=== PATIENT | male | born 1940 | race Caucasian/White ===

== ENCOUNTER → 2018-07-30 09:08 | Outpatient (CLI) | payer BC, SELFPAY ==
[2018-07-30 10:15] LABS: Cholesterol 213 mg/dL (140-199); Glucose 110 mg/dL (80-110); HDL Cholesterol 57 mg/dL (40-60); LDL Cholesterol Calculated 131 mg/dL (<100); Triglycerides 123 mg/dL (35-150)
== END ==
PROVIDERS: PCP Family Medicine; Visit Provider Physician Assistant
DX: E78.00 Pure hypercholesterolemia, unspecified (principal); Z13.1 Encounter for screening for diabetes mellitus; Z13.220 Encounter for screening for lipoid disorders
CPT/HCPCS: 36415; 80061; 82947

== ENCOUNTER → 2019-11-15 08:40 | Outpatient (CLI) | payer BC, SELFPAY ==
[2019-11-15 10:08] LABS: Add Manual Diff / Slide Review NO; Basophils Absolute Auto 0 /uL (0-100); Basophils Percent Auto 0.4 % (0-2); Eosinophils Absolute Auto 100 /uL (0-450); Eosinophils Percent Auto 1.2 % (2-4); Hemoglobin 15.4 g/dL (13.5-17.5); Lymphocytes Absolute Auto 2100 /uL (1100-4500); Lymphocytes Percent Auto 28.7 % (25-40); Mean Corpuscular HGB Conc 34.3 % (30-36); Mean Corpuscular Volume 96.5 fL (80-100); Monocytes Absolute Auto 600 /uL (0-900); Monocytes Percent Auto 8.2 % (3-14); Neutrophils Absolute Auto 4400 /uL (1500-7000); Neutrophils Percent Auto 61.5 % (50-75); Platelet Count 148 X10^3/uL (150-400); Red Blood Cell Count 4.66 X10^6/uL (4.5-5.9); Red Cell Distribution Width 13.3 % (11.6-14.8); White Blood Cell Count 7.2 X10^3/uL (4.5-11.0)
[2019-11-15 10:36] LABS: BUN Creatinine Ratio 26.6 (6-22); Blood Urea Nitrogen 25 mg/dL (9-20); Calcium 9.3 mg/dL (8.4-10.2); Carbon Dioxide 26 mmol/L (22-32); Chloride 107 mmol/L (98-107); Cholesterol 200 mg/dL (140-199); Estimated Glomerular Filt Rate > 60.0 mL/min (>60); Glucose 109 mg/dL (80-110); HDL Cholesterol 45 mg/dL (40-60); HEMOLYSIS 17 (0-50); LDL Cholesterol Calculated 119 mg/dL (<100); Potassium 4.1 mmol/L (3.4-5.1); Sodium 140 mmol/L (137-145); Triglycerides 178 mg/dL (35-150)
[2019-11-15 10:53] LABS: Vitamin D 25 Hydroxy (D3) 26.5 ng/mL (30.0-100.0)
[2019-11-15 11:07] LABS: Prostate Specific Antigen Scrn 2.17 ng/mL (0.1-4.0)
== END ==
PROVIDERS: PCP Family Medicine; Referring Provider Family Medicine; Visit Provider Family Medicine
DX: Z00.00 Encounter for general adult medical examination without abnormal findings (principal); Z12.5 Encounter for screening for malignant neoplasm of prostate; Z76.89 Persons encountering health services in other specified circumstances; E55.9 Vitamin D deficiency, unspecified; E78.5 Hyperlipidemia, unspecified
CPT/HCPCS: 36415; 80048; 80061; 82306; 85025; G0103

== ENCOUNTER → 2020-02-09 10:23 | Outpatient (CLI) | payer BC, SELFPAY ==
[2020-02-10 11:58] LABS: Vitamin D 25 Hydroxy (D3) 33.6 ng/mL (30.0-100.0)
== END ==
PROVIDERS: PCP Family Medicine; Referring Provider Family Medicine; Visit Provider Family Medicine
DX: E55.9 Vitamin D deficiency, unspecified (principal)
CPT/HCPCS: 36415; 82306

== ENCOUNTER → 2020-09-18 09:52 | Outpatient (CLI) | payer BC, SELFPAY ==
[2020-09-18 10:43] LABS: Basophils Absolute Auto 0 /uL (0-100); Basophils Percent Auto 0.4 % (0-2); Eosinophils Absolute Auto 0 /uL (0-450); Eosinophils Percent Auto 0.5 % (2-4); Hemoglobin 15.2 g/dL (13.5-17.5); Lymphocytes Absolute Auto 2000 /uL (1100-4500); Lymphocytes Percent Auto 24.5 % (25-40); Mean Corpuscular HGB Conc 33.1 % (30-36); Mean Corpuscular Hemoglobin 32.2 PG (26-34); Mean Corpuscular Volume 97.3 fL (80-100); Monocytes Absolute Auto 600 /uL (0-900); Monocytes Percent Auto 7.6 % (3-14); Neutrophils Absolute Auto 5400 /uL (1500-7000); Red Blood Cell Count 4.73 X10^6/uL (4.5-5.9); Red Cell Distribution Width 13.6 % (11.6-14.8); White Blood Cell Count 8.1 X10^3/uL (4.5-11.0)
[2020-09-18 10:52] LABS: Alanine Aminotransferase 16 IU/L (<50); Albumin 4.4 g/dL (3.5-5.0); Albumin Globulin Ratio 1.3 (1.0-2.8); Alkaline Phosphatase 71 U/L (38-126); Aspartate Aminotransferase 30 IU/L (17-59); BUN Creatinine Ratio 26.4 (6-22); Bilirubin Total 0.8 mg/dL (0.2-1.3); Blood Urea Nitrogen 24 mg/dL (9-20); Calcium 9.2 mg/dL (8.4-10.2); Carbon Dioxide 29 mmol/L (22-32); Chloride 106 mmol/L (98-107); Cholesterol 214 mg/dL (140-199); Estimated Glomerular Filt Rate > 60.0 mL/min (>60); Globulin 3.5 g/dL (1.7-4.1); Glucose 116 mg/dL (80-110); HDL Cholesterol 59 mg/dL (40-60); HEMOLYSIS < 15 (0-50); LDL Cholesterol Calculated 131 mg/dL (<100); Potassium 4.1 mmol/L (3.4-5.1); Sodium 140 mmol/L (137-145); Total Protein 7.9 g/dL (6.3-8.2); Triglycerides 118 mg/dL (35-150)
[2020-09-18 10:57] LABS: Vitamin D 25 Hydroxy (D3) 42.2 ng/mL (30.0-100.0)
[2020-09-18 11:14] LABS: Prostate Specific Antigen 2.51 ng/mL (0.10-4.00)
[2020-09-18 11:16] LABS: Add Manual Diff / Slide Review SLIDE REVIEW
[2020-09-18 11:23] LABS: Platelet Estimate Decreased on smear; RBC Morphology Normal Morphology
== END ==
PROVIDERS: PCP Family Medicine; Referring Provider Family Medicine; Visit Provider Family Medicine
DX: E55.9 Vitamin D deficiency, unspecified (principal); E78.5 Hyperlipidemia, unspecified; Z12.5 Encounter for screening for malignant neoplasm of prostate
CPT/HCPCS: 80053; 80061; 82306; 84153; 85025

== ENCOUNTER → 2021-12-06 09:06 | Outpatient (CLI) | payer BC, SELFPAY ==
[2021-12-06 10:24] LABS: Add Manual Diff / Slide Review NO; Basophils Absolute Auto 0 /uL (0-100); Basophils Percent Auto 0.3 % (0-2); Eosinophils Absolute Auto 100 /uL (0-450); Eosinophils Percent Auto 0.9 % (2-4); Hematocrit 45.1 % (41-53); Hemoglobin 15.3 g/dL (13.5-17.5); Lymphocytes Absolute Auto 2000 /uL (1100-4500); Lymphocytes Percent Auto 28.1 % (25-40); Mean Corpuscular HGB Conc 33.9 % (30-36); Mean Corpuscular Hemoglobin 32.3 PG (26-34); Mean Corpuscular Volume 95.5 fL (80-100); Monocytes Absolute Auto 500 /uL (0-900); Monocytes Percent Auto 7.5 % (3-14); Neutrophils Absolute Auto 4400 /uL (1500-7000); Neutrophils Percent Auto 63.2 % (50-75); Red Blood Cell Count 4.72 X10^6/uL (4.5-5.9); Red Cell Distribution Width 13.7 % (11.6-14.8)
[2021-12-06 10:41] LABS: Hemoglobin A1C% w Est Avg Glu 5.6 % (4.0-6.0)
[2021-12-06 10:44] LABS: Platelet Count 136 X10^3/uL (150-400)
[2021-12-06 10:51] LABS: Alanine Aminotransferase 17 IU/L (<50); Albumin 4.6 g/dL (3.5-5.0); Albumin Globulin Ratio 1.5 (1.0-2.8); Alkaline Phosphatase 66 U/L (38-126); Aspartate Aminotransferase 29 IU/L (17-59); BUN Creatinine Ratio 23.7 (6-22); Bilirubin Total 0.8 mg/dL (0.2-1.3); Blood Urea Nitrogen 23 mg/dL (9-20); Calcium 9.2 mg/dL (8.4-10.2); Carbon Dioxide 29 mmol/L (22-32); Chloride 107 mmol/L (98-107); Cholesterol 198 mg/dL (140-199); Estimated Glomerular Filt Rate > 60 mL/min (>60); Globulin 3.1 g/dL (1.7-4.1); Glucose 113 mg/dL (80-110); HDL Cholesterol 64 mg/dL (40-60); HEMOLYSIS < 15 (0-50); LDL Cholesterol Calculated 117 mg/dL (<100); Potassium 4.3 mmol/L (3.4-5.1); Sodium 141 mmol/L (137-145); Total Protein 7.7 g/dL (6.3-8.2); Triglycerides 84 mg/dL (35-150)
[2021-12-06 11:10] LABS: Vitamin D 25 Hydroxy (D3) 46.5 ng/mL (30.0-100.0)
[2021-12-06 11:19] LABS: Prostate Specific Antigen Scrn 2.32 ng/mL (0.1-4.0)
== END ==
PROVIDERS: PCP Family Medicine; Referring Provider Family Medicine; Visit Provider Family Medicine
DX: E55.9 Vitamin D deficiency, unspecified (principal); E78.5 Hyperlipidemia, unspecified; R73.01 Impaired fasting glucose; Z12.5 Encounter for screening for malignant neoplasm of prostate
CPT/HCPCS: 36415; 80053; 80061; 82306; 83036; 85025; G0103

== ENCOUNTER → 2022-02-18 10:27 | Outpatient (CLI) | payer BC, SELFPAY ==
[2022-02-18 16:39] LABS: COVID19 -Nasal RAPID Negative (Negative)
== END ==
PROVIDERS: PCP Family Medicine; Visit Provider Surgery
DX: Z01.812 Encounter for preprocedural laboratory examination (principal); Z20.822 Contact with and (suspected) exposure to COVID-19
CPT/HCPCS: 87635; C9803

== ENCOUNTER 2022-02-19 14:23 | Day surgery (SDC) | payer BC, SELFPAY ==
[2022-02-19] MEDS: LACTATED RINGERS 1,000 ML 200 ML IV (14:50)
[2022-02-19 14:55] VITALS: BP 129/77; PULSE 58; RESP 16; TEMP 35.7; O2SAT 97; BMI 24.4
--- NOTE | 2022-02-19 15:20 | PM.HP.1 ---
History of Present Illness History of Present Illness Date Patient Seen: 02/19/22 Time Patient Seen: 15:20 Chief complaint: Colonoscopy Narrative: The patient presents for colorectal screening. Had a normal colonoscopy 5 years ago however prior to this he had multiple polyps. No personal or family history of colon cancer. On further history denies any recent gastrointestinal symptoms. No nausea, vomiting, abdominal pain, loss of appetite, unexplained weight loss, change in bowel habits, diarrhea, constipation, melena, hematochezia, or bright red blood per rectum. Patient History Medical History Chronic left hip pain Elevated fasting blood sugar Hx of colonic polyps Hyperlipidemia Screening for prostate cancer Stiffness of finger joint of right hand Vitamin D deficiency Surgical History Status post knee surgery Family & Social History Family History Father Heart disease Diabetes mellitus Social History: household members spouse Tobacco & Substance use: Smoking Status Never smoker alcohol intake former Substance Use Type does not use Meds Home Medications and Allergies Home Medications Medication Instructions Recorded Confirmed Type ibuprofen 200 mg tablet 200 mg PO PRN PRN Pain (Scale 09/30/17 02/19/22 History Score 1-3) ##0 Allergies Allergy/AdvReac Type Severity Reaction Status Date / Time No Known Drug Allergies Allergy Verified 02/19/22 14:50 Exam Vital Signs (past 8 hours): - 02/19/22 14:55 Temperature 96.2 F L Pulse Rate 58 L Respiratory Rate 16 Blood Pressure 129/77 Pulse Oximetry 97 Oxygen Delivery Method Room Air Oxygen Delivery Method Room Air Narrative Exam Narrative: General adult male alert oriented no acute distress Abdomen soft nontender nondistended Assessment & Plan Assessment & Plan narrative: The patient requires colorectal screening and colonoscopy is recommended. Technical details were discussed. Risks, benefits, alternatives explained. Risks including but not limited to myocardial infarction, aspiration, bleeding, pain, missed lesion, incomplete examination, need for further radiographic studies, colonic perforation, and need for major abdominal surgery were discussed. All questions were answered to their satisfaction, and they are in agreement with this plan. Time Spent With Patient Critical Care time: I spent a total of [] minutes of critical care time on this patient's care today; this time is exclusive of procedural time.
--- NOTE | 2022-02-19 15:21 | PM.OP.COLON ---
Operative Date/Time/Diagnoses Date of procedure: 02/19/22 Time of procedure: 15:21 Pre-op diagnosis: Screening colonoscopy Post-op diagnosis: same Procedure & Clinicians Study performed: Colonoscopy Same procedure as scheduled: Yes Indications: Screening Surgeon: James Jiang Procedure Notes Procedure in detail: Medications: Conscious sedation using 3mg IV midazolam and 100mcg IV of fentanyl The history and physical was performed/updated and the patient is ASA class is 2. The procedure was discussed in detail with the patient. Potential risks complications including infection, bleeding, missed diagnosis, perforation, need for surgery, and were explained. Their questions were answered and informed consent was obtained. Patient was brought to the procedure room and placed standard monitoring equipment. The patient's vital signs were monitored continuously throughout the entire procedure. Prior to starting time-out was performed. The patient was placed in the left lateral recumbent position. Procedural sedation was administered. Examination began with a thorough inspection of the perianal area there was no evidence of fissures, fistulae, external hemorrhoids or cutaneous malignancy. The colonoscopy scope was then placed into the anal canal and was advanced to the cecum, which was identified by the ileocecal valve, the appendiceal orifice and the confluence of the taenia. The scope was then slowly withdrawn examining colon thoroughly in all directions, irrigating it of any residual stool. FINDINGS 1. No masses or polyps 2. Sigmoid diverticulosis-mild The patient tolerated the procedure well. They will be discharged once criteria are met. The prep was of good/excellent quality. The withdrawl time was 7minutes. The sedation time was 20 minutes. Specimen(s): none sent Complications: none Impression: Normal colonoscopy Post-procedure Plan for aftercare: No further colonoscopy is necessary Disposition: same day surgery
[2022-02-19] MEDS: MIDAZOLAM 5 MG/5 ML VIAL 3 MG IV (15:44)
[2022-02-19] MEDS: fentaNYL 100 MCG/2 ML INJ IV (15:44)
[2022-02-19 15:48] VITALS: BP 100/63; PULSE 47; RESP 14; TEMP 36.3; O2SAT 93
[2022-02-19 15:53] VITALS: BP 111/71; PULSE 53; RESP 14; O2SAT 96
[2022-02-19 15:58] VITALS: BP 116/70; PULSE 50; RESP 16; O2SAT 97
== END 2022-02-19 16:15 | disposition home or self-care (01) ==
PROVIDERS: PCP Family Medicine; Referring Provider Surgery; Visit Provider Surgery
PROC: 0DJD8ZZ Inspection of Lower Intestinal Tract, Via Natural or Artificial Opening Endoscopic (ICD-10-PCS; CPT 45378; principal; 2022-02-19 15:45)
DX: Z12.11 Encounter for screening for malignant neoplasm of colon (principal); K57.30 Diverticulosis of large intestine without perforation or abscess without bleeding
CPT/HCPCS: 45378; 99152; J2250; J3010

== ENCOUNTER → 2022-12-19 09:11 | Outpatient (CLI) | payer BC, SELFPAY ==
[2022-12-19 10:26] LABS: Basophils Absolute Auto 0 /uL (0-100); Basophils Percent Auto 0.4 % (0-2); Eosinophils Absolute Auto 100 /uL (0-450); Eosinophils Percent Auto 0.7 % (2-4); Hematocrit 45.8 % (41-53); Hemoglobin 15.5 g/dL (13.5-17.5); Lymphocytes Absolute Auto 2100 /uL (1100-4500); Lymphocytes Percent Auto 22.5 % (25-40); Mean Corpuscular HGB Conc 33.9 % (30-36); Mean Corpuscular Hemoglobin 32.2 PG (26-34); Monocytes Absolute Auto 700 /uL (0-900); Monocytes Percent Auto 7.5 % (3-14); Neutrophils Absolute Auto 6500 /uL (1500-7000); Neutrophils Percent Auto 68.9 % (50-75); Red Blood Cell Count 4.82 X10^6/uL (4.5-5.9); Red Cell Distribution Width 14.2 % (11.6-14.8); White Blood Cell Count 9.4 X10^3/uL (4.5-11.0)
[2022-12-19 10:30] LABS: Add Manual Diff / Slide Review SLIDE REVIEW
[2022-12-19 10:39] LABS: Alanine Aminotransferase 23 IU/L (<50); Albumin 4.4 g/dL (3.5-5.0); Albumin Globulin Ratio 1.2 (1.0-2.8); Alkaline Phosphatase 70 U/L (38-126); Aspartate Aminotransferase 29 IU/L (17-59); BUN Creatinine Ratio 26.8 (6-22); Bilirubin Total 1.2 mg/dL (0.2-1.3); Blood Urea Nitrogen 26 mg/dL (9-20); Calcium 9.2 mg/dL (8.4-10.2); Carbon Dioxide 29 mmol/L (22-32); Chloride 105 mmol/L (98-107); Cholesterol 231 mg/dL (140-199); Estimated Glomerular Filt Rate > 60 mL/min (>60); Globulin 3.6 g/dL (1.7-4.1); Glucose 125 mg/dL (80-110); HDL Cholesterol 58 mg/dL (40-60); HEMOLYSIS < 15 (0-50); LDL Cholesterol Calculated 149 mg/dL (<100); Potassium 4.5 mmol/L (3.4-5.1); Sodium 141 mmol/L (137-145); Triglycerides 121 mg/dL (35-150)
[2022-12-19 12:25] LABS: RBC Morphology Normal Morphology
[2022-12-19 12:26] LABS: Platelet Estimate Adequate on smear
== END ==
PROVIDERS: PCP Family Medicine; Referring Provider Family Medicine; Visit Provider Family Medicine
DX: R73.01 Impaired fasting glucose (principal); E55.9 Vitamin D deficiency, unspecified; E78.2 Mixed hyperlipidemia; Z00.00 Encounter for general adult medical examination without abnormal findings
CPT/HCPCS: 36415; 80053; 80061; 82306; 85025

== ENCOUNTER → 2022-12-27 09:46 | Outpatient (CLI) | payer BC, SELFPAY ==
[2022-12-28 08:47] LABS: Labcorp Hemoglobin (Hb) A1c 5.8 % (4.8-5.6)
== END ==
PROVIDERS: PCP Family Medicine; Referring Provider Family Medicine; Visit Provider Family Medicine
DX: R73.01 Impaired fasting glucose (principal)
CPT/HCPCS: 36415; 83036

== ENCOUNTER → 2023-03-12 10:24 | Outpatient (CLI) | payer BC, SELFPAY ==
[2023-03-12 13:17] LABS: Prostate Specific Antigen Scrn 2.88 ng/mL (0.1-4.0)
== END ==
PROVIDERS: PCP Family Medicine; Referring Provider Physician Assistant; Visit Provider Physician Assistant
DX: Z12.5 Encounter for screening for malignant neoplasm of prostate (principal)
CPT/HCPCS: 36415; G0103

== ENCOUNTER → 2023-04-09 09:50 | Outpatient (CLI) | payer BC, SELFPAY ==
[2023-04-09 11:29] LABS: Hemoglobin A1C% w Est Avg Glu 5.8 % (4.0-6.0)
[2023-04-09 11:45] LABS: Cholesterol 209 mg/dL (140-199); HDL Cholesterol 60 mg/dL (40-60); LDL Cholesterol Calculated 133 mg/dL (<100); Triglycerides 78 mg/dL (35-150)
== END ==
PROVIDERS: PCP Family Medicine; Referring Provider Family Medicine; Visit Provider Family Medicine
DX: E78.5 Hyperlipidemia, unspecified (principal); R73.01 Impaired fasting glucose
CPT/HCPCS: 36415; 80061; 83036

== ENCOUNTER → 2023-04-16 12:07 | Outpatient (CLI) | payer BC, SELFPAY ==
[2023-04-16 13:48] LABS: Appearance Urine UA CLEAR; Bilirubin Urine UA NEGATIVE (NEGATIVE); Color Urine UA YELLOW; Glucose Urine UA NEGATIVE (Negative); Ketones Urine UA NEGATIVE (NEGATIVE); Leukocyte Esterase Urine UA NEGATIVE (NEGATIVE); Nitrite Urine UA NEGATIVE (Negative); Occult Blood Urine UA NEGATIVE (Negative); Protein Urine UA NEGATIVE (Negative); Specific Gravity Urine UA 1.025 (1.000-1.035); Urobilinogen Urine UA 0.2 E.U./dL (0.2)
[2023-04-16 14:05] LABS: Bacteria Urine None Seen; Culture Indicated Urine Cult Not Indicated; RBC Urine 0-1/HPF (0-5/HPF); Squamous Epithelial Cell Urine 0-1 /HPF (0-5/HPF); WBC Urine None Seen (0-5/HPF)
== END ==
PROVIDERS: PCP Family Medicine; Visit Provider Family Medicine
DX: R30.9 Painful micturition, unspecified (principal)
CPT/HCPCS: 81001

== ENCOUNTER → 2023-05-23 09:11 | Outpatient (CLI) | payer BC, SELFPAY ==
--- NOTE | 2023-05-23 09:12 | DI.CT.S_ITS ---
PROCEDURE: CT KIDNEY URETER BLADDER (KUB) INDICATIONS: Hematuria TECHNIQUE: Axial sections were acquired from the lung bases to the pubic symphysis. Coronal and sagittal reformats were performed. For radiation dose reduction, the following was used: automated exposure control, adjustment of mA and/or kV according to patient size. COMPARISON: None. FINDINGS: Image quality: Excellent. Lung bases: Unremarkable. Heart: Moderate coronary artery calcification. URINARY: Kidneys and ureters: A few punctate nonobstructing lower pole right intrarenal calcifications are present. No right hydronephrosis, hydroureter, or perinephric inflammation. 2 left-sided nonobstructing mid and lower pole intrarenal calculi. The largest measures 3 mm. There are a few parapelvic cysts. No hydronephrosis or hydroureter. No ureterolithiasis. Bladder: The urinary bladder is decompressed. There is mild uniform wall thickening. There are 3 intraluminal calculi in the urinary bladder layering posteriorly and along the superior wall. The largest measures 5 mm. ABDOMEN: Liver: No contour-deforming solid mass. Gallbladder: No radiopaque gallstones or wall thickening. Biliary ducts: No biliary dilation. Pancreas: A few punctate glandular calcifications are present. No ductal dilatation. Spleen: Normal size spleen. Scattered coarse calcified granulomas. Adrenal Glands: No adrenal nodules. Stomach and Bowel: Stomach and small bowel loops are normal caliber. Sigmoid colon demonstrates segmental extensive diverticulosis. No acute pericolonic inflammation. The appendix is absent. Occasional colonic diverticula elsewhere. Peritoneum: No abnormal intraperitoneal fluid. No free air. Ventral Wall: No hernia. Abdominal Nodes: No enlarged retroperitoneal or mesenteric lymph nodes. Vessels: Aorta and inferior vena cava are normal in size. PELVIS: Pelvic Organs: The prostate gland is moderately enlarged and contains coarse calcifications. Pelvic Nodes: No adenopathy. Miscellaneous: Bilateral small fat containing indirect inguinal hernias. Bones: No suspicious bone lesions. 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 IMPRESSION: 1. 3 bladder calculi. Presence may cause micro hematuria. 2. Bilateral retained intrarenal calculi measuring up to 3 mm in size. 3. Extensive colonic, particularly sigmoid diverticulosis. 4. Scattered pancreatic calcifications suggesting chronic pancreatitis. Dictated by: Vivi Lujan M.D. on 05/23/2023 at 12:41 Approved by: iVvi Lujan M.D. on 05/23/2023 at 13:14
== END ==
PROVIDERS: PCP Family Medicine; Referring Provider Family Medicine; Visit Provider Family Medicine
DX: N21.0 Calculus in bladder (principal); R31.9 Hematuria, unspecified; N20.0 Calculus of kidney; K57.30 Diverticulosis of large intestine without perforation or abscess without bleeding; K86.89 Other specified diseases of pancreas; I25.10 Atherosclerotic heart disease of native coronary artery without angina pectoris
CPT/HCPCS: 74176

== ENCOUNTER → 2023-07-02 12:15 | Outpatient (CLI) | payer BC, SELFPAY ==
--- NOTE | 2023-07-02 12:17 | DI.RAD.S_ITS ---
PROCEDURE: XR KUB INDICATIONS: Evaluate kidney stone/bladder stone TECHNIQUE: One view of the abdomen acquired. COMPARISON: [facility], CT, CT KIDNEY URETER BLADDER (KUB), 05/23/2023, 9:32. FINDINGS: Surgical changes and devices: None. Bowel: Bowel gas pattern is normal. Soft tissues: 2 mm calculus projecting over the left psoas muscle at the level of L3-L4. Visualized solid organ contours appear normal in size. Bones: Severe DJD of the left hip. IMPRESSION: 2 mm round calculus projecting over the left psoas muscle at the level of L3-L4 could represent phleboliths, atherosclerotic calcification or ureteral calculus. Dictated by: Esvin Ferreira M.D. on 07/02/2023 at 18:01 Approved by: Esvin Ferreira M.D. on 07/02/2023 at 18:06
== END ==
PROVIDERS: PCP Family Medicine; Referring Provider Urology; Visit Provider Urology
DX: N20.0 Calculus of kidney (principal); N21.0 Calculus in bladder; Z87.442 Personal history of urinary calculi
CPT/HCPCS: 74018

== ENCOUNTER 2023-07-08 16:03 | Emergency (ER) | payer BC, SELFPAY ==
[2023-07-08 16:15] VITALS: BP 123/82; PULSE 82; RESP 17; TEMP 36.6; O2SAT 95; BMI 24.7
--- NOTE | 2023-07-08 16:37 | DI.CT.S_ITS ---
PROCEDURE: CT KIDNEY URETER BLADDER (KUB) INDICATIONS: right sided flank pain TECHNIQUE: Axial sections were acquired from the lung bases to the pubic symphysis. Coronal and sagittal reformats were performed. For radiation dose reduction, the following was used: automated exposure control, adjustment of mA and/or kV according to patient size. COMPARISON: [facility], CT, CT KIDNEY URETER BLADDER (KUB), 05/23/2023, 9:32. FINDINGS: Image quality: Diagnostic. Lower Chest: Calcification of the coronary vasculature. URINARY: Right Kidney: Nonobstructing 2 mm calculus within the inferior pole right kidney. Mild right hydronephrosis. Right Ureter: No hydroureter. Left Kidney: 4 mm calculus in the inferior pole left kidney. 3 mm left ureteropelvic junction calculus. Mild left hydronephrosis. Left Ureter: No hydroureter. Bladder: Normal wall thickness several small calculi within the urinary bladder are present, largest of which is in the right posterior urinary bladder measuring roughly 4 mm. ABDOMEN: Liver: No contour-deforming solid mass. Gallbladder: No radiopaque gallstones or wall thickening. Biliary ducts: No biliary dilation. Pancreas: No ductal dilation. Spleen: Size is within normal limits. Adrenal Glands: No adrenal nodules. Stomach and Bowel: Normal colonic caliber, without significant wall thickening. Peritoneum: No abnormal intraperitoneal fluid. No free air. Ventral Wall: No hernia. Abdominal Nodes: No enlarged retroperitoneal or mesenteric lymph nodes. Vessels: Aorta and inferior vena cava are normal in size. PELVIS: Pelvic Organs: Unremarkable. Pelvic Nodes: Unremarkable. Miscellaneous: Fat containing bilateral inguinal hernias are present.. Bones: Unremarkable. IMPRESSION: 1. Left ureteropelvic junction calculus associated with mild left hydronephrosis. 2. Nonobstructing bilateral renal calculi. 3. Coronary artery disease. 4. Urinary bladder calculi. Dictated by: Geoffrey Bajwa M.D. on 07/08/2023 at 16:53 Approved by: Geoffrey Bajwa M.D. on 07/08/2023 at 16:56
[2023-07-08 16:54] LABS: Add Manual Diff / Slide Review NO; Basophils Absolute Auto 100 /uL (0-100); Basophils Percent Auto 0.5 % (0-2); Eosinophils Absolute Auto 0 /uL (0-450); Eosinophils Percent Auto 0.1 % (2-4); Hematocrit 45.8 % (41-53); Hemoglobin 15.4 g/dL (13.5-17.5); Lymphocytes Absolute Auto 1200 /uL (1100-4500); Mean Corpuscular HGB Conc 33.6 % (30-36); Mean Corpuscular Hemoglobin 31.8 PG (26-34); Mean Corpuscular Volume 94.8 fL (80-100); Monocytes Absolute Auto 600 /uL (0-900); Monocytes Percent Auto 5.7 % (3-14); Neutrophils Absolute Auto 9300 /uL (1500-7000); Neutrophils Percent Auto 82.7 % (50-75); Platelet Count 151 X10^3/uL (150-400); Red Blood Cell Count 4.83 X10^6/uL (4.5-5.9); Red Cell Distribution Width 13.6 % (11.6-14.8); White Blood Cell Count 11.3 X10^3/uL (4.5-11.0)
[2023-07-08 16:59] LABS: Prothrombin Time 11.9 SECONDS (9.4-12.5)
[2023-07-08 17:03] LABS: Alanine Aminotransferase 17 IU/L (<50); Albumin 4.6 g/dL (3.5-5.0); Albumin Globulin Ratio 1.2 (1.0-2.8); Alkaline Phosphatase 62 U/L (38-126); Aspartate Aminotransferase 26 IU/L (17-59); BUN Creatinine Ratio 34.8 (6-22); Blood Urea Nitrogen 32 mg/dL (9-20); Calcium 9.4 mg/dL (8.4-10.2); Carbon Dioxide 27 mmol/L (22-32); Chloride 103 mmol/L (98-107); Estimated Glomerular Filt Rate > 60 mL/min (>60); Globulin 3.8 g/dL (1.7-4.1); Glucose 123 mg/dL (80-110); HEMOLYSIS < 15 (0-50); Lipase 42 U/L (23-300); Potassium 4.2 mmol/L (3.4-5.1); Sodium 138 mmol/L (137-145); Total Protein 8.4 g/dL (6.3-8.2)
[2023-07-08 17:42] LABS: Bacteria Urine None Seen; Culture Indicated Urine Cult Not Indicated; RBC Urine 5-10/HPF (0-5/HPF); Squamous Epithelial Cell Urine 0-1 /HPF (0-5/HPF); Urine Volume 10mL (spun); WBC Urine None Seen (0-5/HPF)
--- NOTE | 2023-07-08 17:42 | PC.NURSE ---
Wound cleaned and dressed. Pt educated to keep wound dry and clean once a day with soap and water. It was stressed the importance of antibiotics
[2023-07-08 18:02] VITALS: BP 128/84; PULSE 76; RESP 18; O2SAT 95
--- NOTE | 2023-07-08 18:10 | ED_ITS ---
HPI - Back Pain/Injury <Argenis Miguel PA-C - Last Filed: 07/08/23 18:16> General Chief Complaint: Back Pain/Injury Stated Complaint: back pain Time Seen by Provider: 07/08/23 17:27 History of Present Illness HPI Narrative: 83-year-old male with past medical history nephrolithiasis, inguinal hernia, hyperlipidemia presents to the ED with 1 day of right-sided flank pain. Patient states that he has a history of nephrolithiasis, is a patient of Dr. Arthur. Patient states that he had multiple episodes of intermittent right-sided flank pain earlier today. Patient states that his pain has subsided since he came into the ED. patient denies fever, chills, nausea, vomiting. Patient talked to Dr. Arthur who sent him to the ED for further evaluation. Related Data Previous Rx's Medication Instructions Recorded tamsulosin 0.4 mg capsule 0.4 mg PO BEDTIME 30 days #30 caps 07/08/23 Allergies Allergy/AdvReac Type Severity Reaction Status Date / Time No Known Drug Allergies Allergy Verified 07/08/23 16:19 Review of Systems <Argenis Miguel PA-C - Last Filed: 07/08/23 18:16> Constitutional Constitutional: Denies chills, Denies fatigue, Denies fever(s), Denies frequent falls, Denies lethargy and Denies weakness Eyes Eyes: Denies change in vision, Denies eye discharge, Denies irritation and Denies loss of vision ENT Ears, Nose, Mouth, and Throat: Denies change in voice, Denies dizziness, Denies neck pain, Denies sore throat and Denies throat swelling Cardiovascular Cardiovascular: Denies chest pain, Denies irregular heart rhythm, Denies lightheadedness, Denies palpitations, Denies dyspnea, Denies dyspnea on exertion and Denies orthopnea Respiratory Respiratory: Denies cough, Denies dyspnea, Denies dyspnea on exertion and Denies wheezing Gastrointestinal Gastrointestinal: Denies abdominal pain, Denies change in bowel habits, Denies diarrhea, Denies nausea and Denies vomiting Genitourinary Comments: Right-sided flank pain Musculoskeletal Musculoskeletal: Denies neck pain and Denies numbness Integumentary/Breasts Skin/Breast: Denies pruritus, Denies erythema, Denies rash and Denies wounds Neurologic Neurologic: Denies behavioral changes, Denies confusion, Denies dizziness, Denies frequent falls, Denies loss of vision, Denies numbness and Denies weakness Psychiatric Psychiatric: Denies anxiety, Denies behavioral changes, Denies confusion, Denies depression, Denies homicidal ideation and Denies suicidal ideation Endocrine Endocrine: Denies fatigue, Denies flushing and Denies palpitations Hematologic/Lymphatic Hematologic/Lymphatic: Denies easy bruising Allergic/Immunologic Allergic/Immunologic: Denies urticaria, Denies throat swelling and Denies wheezing Patient History <Argenis Miguel PA-C - Last Filed: 07/08/23 18:16> Medical History Lower urinary tract symptoms Bilateral inguinal hernia Bladder calculi Left renal stone Melanocytic nevus Left lower quadrant abdominal pain Stiffness of finger joint of right hand Hx of colonic polyps Elevated fasting blood sugar Chronic left hip pain Screening for prostate cancer Vitamin D deficiency Hyperlipidemia Surgical History Status post knee surgery Family History Father Heart disease Diabetes mellitus Social History household members: spouse Smoking Status: Never smoker alcohol intake: former Smoking Status: Never smoker alcohol intake frequency: other Substance Use Type: does not use Exam <Argenis Miguel PA-C - Last Filed: 07/08/23 18:16> Narrative Exam Narrative: Const General:?cooperative, healthy appearing and comfortable [facility] Head:?normal to inspection Ears:?hearing grossly normal bilaterally Nose:?external nose normal Face and sinus:?normal facial exam and sinuses nontender Mouth:?oral mucosae normal Throat:?posterior oropharynx normal Eyes General:?appearance normal, both eyes and all related structures Neck Neck:?normal visual inspection and no lymphadenopathy noted Resp Effort & Inspection:?normal respiratory effort Auscultation:?clear to auscultation bilaterally Cardio Rate:?regular rate Rhythm:?regular rhythm GI No CVA tenderness. Abdomen is soft, nondistended, nontender to palpation. Neuro General:?patient alert, patient awake and patient oriented x3 Initial Vital Signs Initial Vital Signs: Vital Signs Temperature 98 F 07/08/23 16:15 Pulse Rate 82 07/08/23 16:15 Respiratory Rate 17 07/08/23 16:15 Blood Pressure 123/82 07/08/23 16:15 Pulse Oximetry 95 07/08/23 16:15 Oxygen Delivery Method Room Air 07/08/23 16:15 <Pascale Victoria DO - Last Filed: 07/09/23 08:40> Initial Vital Signs Initial Vital Signs: Vital Signs Temperature 98 F 07/08/23 16:15 Pulse Rate 82 07/08/23 16:15 Respiratory Rate 17 07/08/23 16:15 Blood Pressure 123/82 07/08/23 16:15 Pulse Oximetry 95 07/08/23 16:15 Oxygen Delivery Method Room Air 07/08/23 16:15 Course <Argenis Miguel PA-C - Last Filed: 07/08/23 18:16> Orders Ordered: Discontinued Medications Ondansetron HCl (Ondansetron 4 Mg Odt) 4 mg PO NOW PRN PRN Reason: Nausea And Vomiting Ondansetron HCl (Ondansetron 4 Mg/2 Ml Inj) 4 mg IV NOW PRN PRN Reason: Nausea And Vomiting Vital Signs Vital signs: Vital Signs - 8 hr 07/08/23 16:15 07/08/23 18:02 Temperature 98 F Pulse Rate 82 76 Respiratory Rate 17 18 Blood Pressure 123/82 128/84 Pulse Oximetry 95 95 Oxygen Delivery Method Room Air Room Air <Pascale Victoria DO - Last Filed: 07/09/23 08:40> Orders Ordered: Discontinued Medications Ondansetron HCl (Ondansetron 4 Mg Odt) 4 mg PO NOW PRN PRN Reason: Nausea And Vomiting Ondansetron HCl (Ondansetron 4 Mg/2 Ml Inj) 4 mg IV NOW PRN PRN Reason: Nausea And Vomiting Vital Signs Vital signs: Vital Signs - 8 hr 07/08/23 16:15 07/08/23 18:02 Temperature 98 F Pulse Rate 82 76 Respiratory Rate 17 18 Blood Pressure 123/82 128/84 Pulse Oximetry 95 95 Oxygen Delivery Method Room Air Room Air MDM - Back Pain/Injury <GEMMA Liang Last Filed: 07/08/23 18:16> Lab Data 07/08/23 16:35 07/08/23 16:35 Labs: Lab Results 07/08/23 07/08/23 Range/Units 16:32 16:35 WBC 11.3 H (4.5-11.0) X10^3/uL RBC 4.83 (4.5-5.9) X10^6/uL Hgb 15.4 (13.5-17.5) g/dL Hct 45.8 (41-53) % MCV 94.8 (80-100) fL MCH 31.8 (26-34) PG MCHC 33.6 (30-36) % RDW 13.6 (11.6-14.8) % Plt Count 151 (150-400) X10^3/uL Neut % (Auto) 82.7 H (50-75) % Lymph % (Auto) 11.0 L (25-40) % [place] % (Auto) 5.7 (3-14) % Eos % (Auto) 0.1 L (2-4) % Baso % (Auto) 0.5 (0-2) % Neut # (Auto) 9300 H (0230-7033) /uL Lymph # (Auto) 1200 (3473-9103) /uL [place] # (Auto) 600 (0-900) /uL Eos # (Auto) 0 (0-450) /uL Baso # (Auto) 100 (0-100) /uL PT 11.9 (9.4-12.5) SECONDS INR 1.0 (0.9-1.3) Sodium 138 (137-145) mmol/L Potassium 4.2 (3.4-5.1) mmol/L Chloride 103 (98-107) mmol/L Carbon Dioxide 27 (22-32) mmol/L BUN 32 H (9-20) mg/dL Creatinine 0.92 (0.66-1.25) mg/dL Estimated GFR > 60 (>60) mL/min BUN/Creatinine Ratio 34.8 H (6-22) Glucose 123 H (80-110) mg/dL Calcium 9.4 (8.4-10.2) mg/dL Total Bilirubin 1.0 (0.2-1.3) mg/dL AST 26 (17-59) IU/L ALT 17 (<50) IU/L Alkaline Phosphatase 62 (38-126) U/L Total Protein 8.4 H (6.3-8.2) g/dL Albumin 4.6 (3.5-5.0) g/dL Globulin 3.8 (1.7-4.1) g/dL Albumin/Globulin Ratio 1.2 (1.0-2.8) Lipase 42 (23-300) U/L Urine RBC 5-10/hpf H (0-5/HPF) Urine WBC None seen (0-5/HPF) Ur Squamous Epith Cells 0-1 /hpf (0-5/HPF) Urine Bacteria None seen (None) Ur Culture Indicated? Cult not indicated Vol Urine Centrifuged 10ml (spun) Urine Dip Bedside Urine Glucose Negative Bedside Urine Bilirubin - Negative Bedside Urine Ketone +/- 5 Urine Specific [place] 1.030 Bedside Urine Occult Blood +++ Bedside Urine pH 6.0 Bedside Urine Protein - Negative Bedside Urine Urobilinogen - Negative Bedside Urine Nitrite - Negative Bedside Urine Leukocytes - Negative Esterase MDM Narrative Medical decision making narrative: 83-year-old male with past medical history nephrolithiasis, inguinal hernia, hyperlipidemia presents to the ED with 1 day of right-sided flank pain. Concern for nephrolithiasis versus UTI versus pyelonephritis versus other intra- abdominal pathology versus other. Obtained labs, UA, CT abdomen pelvis. UA shows hematuria but no infection. Labs within normal limits. CT abdomen pelvis shows a nonobstructing 2 mm calculus within the inferior pole of the right kidney. There is mild right hydronephrosis. There is a 4 mm calculus in the inferior pole of the left kidney. There is a 3 mm left ureteropelvic junction calculus. There is mild left hydronephrosis. There are several small calculi within the urinary bladder, largest of which is in the right posterior urinary bladder measuring roughly 4 mm. There are fat containing bilateral inguinal hernias. No other acute findings on CT. Discussed findings with patient, explained that his symptoms are most consistent with a kidney stone that he might have passed just prior to the CT. Prescribed tamsulosin. Patient agrees to follow-up with Dr. Arthur as scheduled in 2 weeks. ED return precautions discussed with patient. Patient verbalized understanding. Medical records reviewed: Yes <Pascale Victoria DO - Last Filed: 07/09/23 08:40> Lab Data Labs: Lab Results 07/08/23 07/08/23 Range/Units 16:32 16:35 WBC 11.3 H (4.5-11.0) X10^3/uL RBC 4.83 (4.5-5.9) X10^6/uL Hgb 15.4 (13.5-17.5) g/dL Hct 45.8 (41-53) % MCV 94.8 (80-100) fL MCH 31.8 (26-34) PG MCHC 33.6 (30-36) % RDW 13.6 (11.6-14.8) % Plt Count 151 (150-400) X10^3/uL Neut % (Auto) 82.7 H (50-75) % Lymph % (Auto) 11.0 L (25-40) % [place] % (Auto) 5.7 (3-14) % Eos % (Auto) 0.1 L (2-4) % Baso % (Auto) 0.5 (0-2) % Neut # (Auto) 9300 H (5705-2522) /uL Lymph # (Auto) 1200 (7212-5426) /uL [place] # (Auto) 600 (0-900) /uL Eos # (Auto) 0 (0-450) /uL Baso # (Auto) 100 (0-100) /uL PT 11.9 (9.4-12.5) SECONDS INR 1.0 (0.9-1.3) Sodium 138 (137-145) mmol/L Potassium 4.2 (3.4-5.1) mmol/L Chloride 103 (98-107) mmol/L Carbon Dioxide 27 (22-32) mmol/L BUN 32 H (9-20) mg/dL Creatinine 0.92 (0.66-1.25) mg/dL Estimated GFR > 60 (>60) mL/min BUN/Creatinine Ratio 34.8 H (6-22) Glucose 123 H (80-110) mg/dL Calcium 9.4 (8.4-10.2) mg/dL Total Bilirubin 1.0 (0.2-1.3) mg/dL AST 26 (17-59) IU/L ALT 17 (<50) IU/L Alkaline Phosphatase 62 (38-126) U/L Total Protein 8.4 H (6.3-8.2) g/dL Albumin 4.6 (3.5-5.0) g/dL Globulin 3.8 (1.7-4.1) g/dL Albumin/Globulin Ratio 1.2 (1.0-2.8) Lipase 42 (23-300) U/L Urine RBC 5-10/hpf H (0-5/HPF) Urine WBC None seen (0-5/HPF) Ur Squamous Epith Cells 0-1 /hpf (0-5/HPF) Urine Bacteria None seen (None) Ur Culture Indicated? Cult not indicated Vol Urine Centrifuged 10ml (spun) Urine Dip Bedside Urine Glucose Negative Bedside Urine Bilirubin - Negative Bedside Urine Ketone +/- 5 Urine Specific [place] 1.030 Bedside Urine Occult Blood +++ Bedside Urine pH 6.0 Bedside Urine Protein - Negative Bedside Urine Urobilinogen - Negative Bedside Urine Nitrite - Negative Bedside Urine Leukocytes - Negative Esterase Discharge Plan Departure Patient Disposition: Home Clinical Impression: Back pain Qualifiers: Back pain location: low back pain Chronicity: acute Back pain laterality: right Sciatica presence: unspecified whether sciatica present Qualified Code(s): M 54.50 - Low back pain, unspecified Instructions: Kidney Stones -- Adult Activity Restrictions/Additional Instructions: You were evaluated in the ED today for right-sided flank pain. Your urine and labs were normal. Your CT scan did show a right-sided kidney stone inside of the kidney, however the position of that stone would not create the symptoms you experienced today. It is most likely that you passed a stone, several of which are in the bladder that might have caused your symptoms from earlier today. Please follow-up with Dr. Arthur as planned. You are being prescribed tamsulosin to take until you see Dr. Arthur. Return to the ED if you have worsening symptoms, persistent vomiting, fever, chills. Prescriptions: New tamsulosin 0.4 mg capsule 0.4 mg PO BEDTIME 30 Days Qty: 30 0RF Referrals: Drew Moore DO [Primary Care Provider] - Stand Alone Forms: Patient Portal/API ED Sign-out <Pascale Victoria DO - Last Filed: 07/09/23 08:40> Cosign ED Attending Cosignature Attestation: I was immediately available in the department for consultation.
== END 2023-07-08 18:05 | disposition home or self-care (01) ==
PROVIDERS: Emergency Medicine; Emergency Provider Student in an Organized Health Care Education/Training Program; PCP Family Medicine
DX: M54.50 Low back pain, unspecified (principal); K40.20 Bilateral inguinal hernia, without obstruction or gangrene, not specified as recurrent; N20.0 Calculus of kidney; N21.0 Calculus in bladder; R39.9 Unspecified symptoms and signs involving the genitourinary system; N52.9 Male erectile dysfunction, unspecified; R10.9 Unspecified abdominal pain
CPT/HCPCS: 36415; 74176; 80053; 81002; 81003; 81015; 83690; 85025; 85610; 99284

== ENCOUNTER → 2023-07-24 15:15 | Outpatient (CLI) | payer BC, SELFPAY ==
[2023-08-02 14:19] LABS: Ca oxalate dihydrate 30 % (.); Ca oxalate monohydr 70 % (.); Size 3x2 mm (.)
== END ==
PROVIDERS: PCP Family Medicine; Visit Provider Urology
DX: N20.2 Calculus of kidney with calculus of ureter (principal); R39.9 Unspecified symptoms and signs involving the genitourinary system; N21.0 Calculus in bladder; R10.9 Unspecified abdominal pain
CPT/HCPCS: 81002; 82365

== ENCOUNTER → 2023-08-26 10:18 | Outpatient (CLI) | payer BC, SELFPAY ==
--- NOTE | 2023-08-26 10:19 | DI.RAD.S_ITS ---
PROCEDURE: XR KUB INDICATIONS: Follow-up kidney stones and bladder calculi TECHNIQUE: One view of the abdomen acquired. COMPARISON: [facility], CT, CT KIDNEY URETER BLADDER (KUB), 07/08/2023, 16:43. [facility], CR, XR KUB, 07/02/2023, 12:30. FINDINGS: Surgical changes and devices: None. Bowel: Bowel gas pattern is nonobstructive. Moderate colonic stool. Soft tissues: No suspicious abdominal calcifications. No definitive calcifications overlying the renal shadows. Visualized solid organ contours appear normal in size. Bones: No suspicious bony lesions. IMPRESSION: Previous areas of renal calcifications or left ureteral calcifications are not well seen. Dictated by: Lisa Almanzar M.D. on 08/26/2023 at 13:36 Approved by: Lisa Almanzar M.D. on 08/26/2023 at 13:38
== END ==
PROVIDERS: PCP Family Medicine; Referring Provider Urology; Visit Provider Urology
DX: N20.0 Calculus of kidney (principal); N21.0 Calculus in bladder; Z87.442 Personal history of urinary calculi
CPT/HCPCS: 74018

== ENCOUNTER → 2023-09-04 10:46 | Outpatient (CLI) | payer BC, SELFPAY ==
--- NOTE | 2023-09-04 10:47 | DI.CT.S_ITS ---
PROCEDURE: CT KIDNEY URETER BLADDER (KUB) INDICATIONS: Calculus of left kidney TECHNIQUE: Axial sections were acquired from the lung bases to the pubic symphysis. Coronal and sagittal reformats were performed. For radiation dose reduction, the following was used: automated exposure control, adjustment of mA and/or kV according to patient size. COMPARISON: [facility], CT, CT KIDNEY URETER BLADDER (KUB), 07/08/2023, 16:43. FINDINGS: Image quality: Diagnostic. Lower Chest: No significant findings. URINARY: Right Kidney: No stones or hydronephrosis. Right Ureter: No hydroureter. No ureteral stones seen Left Kidney: No stones or hydronephrosis. Left Ureter: No hydroureter. No ureteral stone seen Bladder: Decompressed, poorly evaluated. The enlarged prostate projects into the base of the bladder with numerous calcifications noted both in the right and left ureterovesical junction region; some of the stones appear to be within the bladder versus bladder wall and some in the adjacent prostate. ABDOMEN: Liver: No contour-deforming solid mass. Gallbladder: No radiopaque gallstones or wall thickening. Biliary ducts: No biliary dilation. Pancreas: No ductal dilation. Spleen: Size is within normal limits. Splenic calcifications present. Adrenal Glands: No adrenal nodules. Stomach and Bowel: Normal colonic caliber, without significant wall thickening. Severe diverticulosis of the entire colon without evidence of diverticulitis. Nonvisualized appendix. No secondary signs of appendicitis seen. Peritoneum: No abnormal intraperitoneal fluid. No free air. Ventral Wall: No hernia. Abdominal Nodes: No enlarged retroperitoneal or mesenteric lymph nodes. Vessels: Aorta and inferior vena cava are normal in size. PELVIS: Pelvic Organs: Foci of calcifications seen in the posterior left testicle region.. Pelvic Nodes: Unremarkable. Miscellaneous: Bilateral fat containing inguinal hernias. Bones: Severe DJD of the left hip with destruction of the hip joint space, subchondral sclerosis and osteophytes.. IMPRESSION: 1. No renal stones or hydronephrosis 2. Markedly enlarged prostate projecting into the base of the bladder with numerous stones within the bladder wall/prostate; some of these stones may be in the dependent portion of the bladder lumen vs. wall and some of them may be in the abutting prostate. Dictated by: Esvin Ferreira M.D. on 09/04/2023 at 12:15 Approved by: Esvin Ferreira M.D. on 09/04/2023 at 12:39
== END ==
PROVIDERS: PCP Family Medicine; Referring Provider Urology; Visit Provider Urology
DX: N20.0 Calculus of kidney (principal); N40.0 Benign prostatic hyperplasia without lower urinary tract symptoms; M16.12 Unilateral primary osteoarthritis, left hip; K40.20 Bilateral inguinal hernia, without obstruction or gangrene, not specified as recurrent; K57.90 Diverticulosis of intestine, part unspecified, without perforation or abscess without bleeding; D73.89 Other diseases of spleen
CPT/HCPCS: 74176

== ENCOUNTER 2023-09-17 12:54 | Day surgery (SDC) | payer BC, SELFPAY ==
[2023-09-04 09:33] VITALS: BMI 24.9
[2023-09-17] VITALS (16 sets, daily range): BP systolic 103–143; BP diastolic 59–89; PULSE 68–85; RESP 13–19; TEMP 35.9–36.3; O2SAT 91–95; BMI 24.4
[2023-09-17] MEDS: LACTATED RINGERS 1,000 ML 21 ML IV (13:43)
--- NOTE | 2023-09-17 13:57 | PM.PREOP ---
Pre-operative Note Interval Note History & Physical reviewed/Exam performed by Physician: Yes Changes to H&P: No
--- NOTE | 2023-09-17 14:24 | SUR.OPER ---
Lithotomy on padded OR bed, head on pillow, arms secured on padded arm boards at <90 degrees abduction. Legs secured in padded yellow fins stirrups. THEN Supine on padded OR bed, head on pillow, arms secured on padded arm boards at <90 degrees abduction, legs uncrossed, safety belt at thigh,
--- NOTE | 2023-09-17 14:25 | PM.PREOP ---
Pre-operative Note COVID-19 COVID-19 status: Not tested Interval Note History & Physical reviewed/Exam performed by Physician: Yes Changes to H&P: No
[2023-09-17] MEDS: CEFAZOLIN 2 GM/100 ML PREMIX 100 ML IV (14:55)
--- NOTE | 2023-09-17 15:07 | PM.OP.1 ---
Procedure & Clinicians Procedure: Cystoscopy with evacuation of bladder calculi and placement of Mohr catheter Same procedure as scheduled: Yes Indications: This 83-year-old male was found to have bilateral renal calculi. He has since cleared the stones down into the bladder but they have failed to evacuate the bladder he presents this time for cystoscopy with evacuation of bladder calculi. He will go onto hernia repair by Dr. Jiang who has asked that we place a Mohr catheter at the end of the case. Surgeon: Robb Arthur Click Yes if Unassisted: Yes Anesthesia Type: General Operative Notes Findings: Findings: At cystoscopy urethral meatus was normal urethra is normal along its length with normal mucosa. The bladder exhibits moderate approaching severe obstructive character with a somewhat elevated bladder neck and normal mucosa. The ureteral orifices in normal position with clear efflux. 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 This had a 0.5 cm stone proximally have some in her stone which was removed with the aid of the mechanical lithotrite. The bladder exhibited severe trabeculation and cellules there were no mucosal lesions. The left ureteral orifice again was normal but did have the Hutch diverticulum. There were approximately 6 stones within the bladder which were evacuated these will be forward to pathology for compositional analysis. There were no other stones noted. And no other abnormalities. Closure Type: not applicable Specimen(s): other (Bladder calculi) Applied: catheter ([address]r catheter with 10 cc in balloon) Estimated Blood Loss (mL): 0 Blood products transfused: none Procedure in detail: Procedure in detail: After informed consent was obtained, the patient was identified and brought the operating room where he was placed in supine position on the table. Patient then had anesthesia induced and maintained. Ensuring an adequate level of anesthesia the patient was transitioned to the lithotomy position where he was prepped, draped, prepared for Transurethral procedure. After prepping, draping, ensuring an adequate level of anesthesia, time-out and antibiotics a 22 Slovenian cystoscope was passed through the urethra and into the bladder where cystoscopy was performed. The stones were evacuated easily with the scope in flow of fluid. Except for the 1 in the diverticula. Mechanical lithotrite was then inserted in the stone grasped and removed. The scope was reinserted the bladder filled and inspected no further stones were noted the bladder was left full the scope was removed and the 16 Slovenian 5 cc Mohr catheter was passed easily into the bladder the balloon was filled with 10 cc of sterile water and placed to gravity drainage. At this point the patient tolerated the procedure well there were no complications in the patient will go on to procedure and disposition per Dr. Jiang. Complications: none Post-operative Condition: stable Disposition: other (Patient to have laparoscopic hernia repair and then disposition per Dr. Jiang) Plan for aftercare: Follow-up in my office 10-14 days
[2023-09-17] MEDS: ACETAMINOPHEN IV 1,000 MG/100 ML VIAL 400 MG IV (16:13)
--- NOTE | 2023-09-17 16:55 | PM.OP.1 ---
Operative Date/Time/Diagnoses Date of procedure: 09/17/23 Time of procedure: 16:55 Pre-op diagnosis: Bilateral inguinal hernia Post-op diagnosis: same Procedure & Clinicians Procedure: Laparoscopic repair of bilateral inguinal hernia Same procedure as scheduled: Yes Indications: Symptomatic reducible bilateral inguinal hernia Surgeon: James Jiang Telegraphic Instrument Supervisor: Nathan Ascencio Anesthesia Type: General Operative Notes Findings: Bilateral direct inguinal hernia. No indirect defects. Specimen(s): none sent Estimated Blood Loss (mL): 20 Procedure in detail: After Dr. Arthur of Urology performed a cystoscopy and removal of bladder stones patient was then prepped and draped in sterile fashion and a 2nd time-out was performed. They received 2 g of Ancef prior to skin incision. They were prepped and draped in sterile fashion. The skin was infiltrated with 0.25% bupivicaine. A 1 cm supra umbilical midline incision was made. The fascia was sharply incised and the abdomen entered traumatically. A 10mm balloon port was placed and pneumoperitoneum was established at 15mm Hg. Inspection of the abdomen demonstrated no evidence of injury upon entry. Two 5 mm ports were then placed under direct visualization in the right and left lower quadrant lateral to the rectus muscle. A right and left direct hernias were observed. Starting on the left side the peritoneum 4 cm superior to the deep inguinal ring between the medial umbilical ligament and the anterior superior iliac spine was incised. The medial preperitoneal dissection was carried out into the space of Retzius bluntly, the bladder was swept inferiorly, the pubis and Tenzin's ligament were identified. Next attention was turned towards the lateral aspect of the peritoneal flap. The preperitoneal fat with the testicular vessels was carefully dissected off the inferior peritoneal flap. The cord was carefully inspected there was no evidence of an indirect hernia. The attachements to the direct hernia sac were divided and the direct defect was reduced. A large Bard 3D Max mesh was then placed into the abdomen and positioned such that the myopectineal orifice was completely covered with good overlap on all sides. The peritoneal flap was then repositioned back to its original position and a running V lock suture was used to close the peritoneum such that no bowel could herniate into the preperitoneal space. The area was examined for hemostasis. Next the right side was addressed. The peritoneum 4 cm superior to the deep inguinal ring between the medial umbilical ligament and the anterior superior iliac spine was incised. The medial preperitoneal dissection was carried out into the space of Retzius bluntly, the bladder was swept inferiorly, the pubis and Tenzin's ligament were identified. Next attention was turned towards the lateral aspect of the peritoneal flap. The preperitoneal fat with the testicular vessels was carefully dissected off the inferior peritoneal flap. The cord was carefully inspected there was no evidence of indirect defect or cord lipoma. The attachements to the direct hernia sac were divided and the direct defect was reduced. A large Bard 3D Max mesh was then placed into the abdomen and positioned such that the myopectineal orifice was completely covered with good overlap on all sides. The peritoneal flap was then repositioned back to its original position and a running V lock suture was used to close the peritoneum such that no bowel could herniate into the preperitoneal space. The area was examined for hemostasis. The 5mm trocars were removed under direct visualization and pneumoperitoneum was deflated through the umbilical trocar, The fascia at the umbilicus was closed with 0-Vicryl in figure of 8 fashion, skin closed with 4-0 Monocyl followed by Dermabond. The sponge and instrument count at the end of the case was correct. Both testicles were entirely within the scrotum at the end of the case. The patient emerged from anesthsia was extubated and transferred to recovery in stable condition. Complications: none Post-operative Condition: stable Disposition: same day surgery
[2023-09-17] MEDS: BUPIVACAINE 0.25% (PF) VIAL 30 ML INJ (17:04)
[2023-09-17] MEDS: HYDROMORPHONE 1 MG INJ IV (17:30)
[2023-09-17] MEDS: PHENAZOPYRIDINE 100 MG TABLET 200 MG PO (17:32)
[2023-09-17] MEDS: ONDANSETRON 4 MG/2 ML INJ IV (18:35)
--- NOTE | 2023-09-17 19:04 | PC.NURSE ---
Patient report received from PACU at 1840 patient arrived to room 208 at 1850 via gurney and transported via slide board. He is A&OX4 VSS, on RA. when asked his pain level he states I feel It. X 3 lap sites with duoderm RN TRANSPORT c/d/i to abdomen. Per WORKERS COMPENSATION CONSULTANT patient voided x1 with slight hematuria. He is oriented to room and settled in the room. at bedside assisting him to drink gale shake from [employer]. Endorsed admission to oncoming RN.
[2023-09-17] MEDS: IBUPROFEN 600 MG TABLET PO (19:55)
[2023-09-17] MEDS: ACETAMINOPHEN 325 MG TABLET 650 MG PO (23:23)
[2023-09-18] VITALS: BP 138/82; PULSE 80; RESP 19; TEMP 36.5; O2SAT 95
[2023-09-18 02:00] VITALS: O2SAT 95
[2023-09-18 06:00] VITALS: O2SAT 95
[2023-09-18] MEDS: IBUPROFEN 600 MG TABLET PO (06:40)
[2023-09-18 08:00] VITALS: RESP 20
[2023-09-18 08:57] VITALS: BP 168/86; PULSE 61; RESP 16; TEMP 36.3; O2SAT 99
--- NOTE | 2023-09-18 09:06 | PC.NURSE ---
Pt A/o Lap sites CDI Pt denies any pain.. Orders for D/C received. Home instructions given w/understanding. Pt ambulated escorted by staff to waiting vehicle D/C in stable post op status
--- NOTE | 2023-09-18 14:01 | CM.DANOTE ---
Initial DCP Assessment Visit Note Reviewed EMR and team rounds for medical status and updates. Met with pt at bedside to introduce self and role, pt was found to be dressed and ready for d/c, his was on her way to drive him home. No identified DCP needs were identified by patient during this admission. Payor: [facility] Attending: Dr. Copeland Pt is a 83 year-old M placed in a [facility] bed following his planned surgery with Dr. Arthur and Dr. Jiang which was completed yesterday. Pt was found to have bladder stones and a bilateral inguinal hernia prior to surgery. Plan was made for Dr. Arthur to complete a cystoscopy and removal of pt's bladder stones, after which Dr. Jiang was standing by to repair pt's bilateral inguinal hernia. Pt understands his plan for post-surgical f/u with Urology and w/Dr. Jiang. No psychsocial needs or concerns at this time. Discharge Planning/Care Management CM Discharge Assessment Start: 09/18/23 14:00 Freq: Status: Active Protocol: Document 09/18/23 14:00 DPL (Rec: 09/18/23 14:01 DPL [id number]) Discharge Planning Assessment Assigned Patent Solicitor WILLY Sepulveda Advance Directives? No History Provided By Patient,Medical Record Has Patient been admitted in last 30 No days? Prior Living Arrangements House Household Members spouse Type of transporation used prior to Drives own vehicle admit Independent with ADL's Yes Is patient alert and oriented? Yes Caregiver for Another No Comment No identified d/c needs at this time. Barriers to Discharge No Discharge Plan Home Transportation Arrangement Spouse Referrals Initiated None needed Whiteboard Updated in Patient Room with Yes name and ext. # of Patent Solicitor Review Status In Process Please Provide Date Initial DC 09/18/23 Assessment Was Performed Pre-Anesthesia Assessment Start: 09/04/23 09:32 Freq: Status: Complete Protocol: Document 09/04/23 09:33 CAB (Rec: 09/04/23 09:48 CAB [id number]) Pre-Anesthesia Assessment Patient Information Reviewed Via Chart Review Primary Care Provider Drew Moore Seen Specialist in Last 12 Months Yes Specialist Seen Internet Marketing Strategist,General surgeon, Urologist Primary Language Maltese Surface Lay Out Technician Required No Height 182.88 cm Weight 83.461 kg Body Mass Index (BMI) 24.9 Hearing Ability Normal Visual Assist Glasses Dentition Type Teeth, Natural Present Barriers to Learning None Hx Anesthesia Reactions No Hx Family Anesthesia Reaction No Hx Malignant Hyperthermia No Hx Blood Transfusion Reaction No Anesthesia Review Requested No Door Repairer Bus No alcohol intake former alcohol intake frequency other Smoking Status Never smoker Substance Use Type does not use Pain Present Pain Reported Musculoskeletal Symptoms Joint Pain Patient is completely paralyzed or No completely immobile Mental Status Oriented to own ability Is patient on oxygen? No Does patient have DELGADO/SOB No Hx Sleep Apnea No CPAP/BIPAP use not prescribed Currently Taking a Beta Yunior No Hx Chest Pain No Hx SOB No Hx Syncope or Dizziness No Anti-Coagulant Therapy No Has a Network Operations Technician No Cardiac Testing No Hx Pacemaker/ICD No Pacemaker Rep Required? No Urinary Catheter Present No Hx Urinary Self Catheterization No Diabetes No Presence of External or Internal Medical No Devices Received a COVID vaccine? Yes Comment Covid infection 08/01/23- notified surgeon's office Marital Status Lives With spouse Patient Discharge Plan Description Return Home Advance Directives? No
== END 2023-09-18 09:00 | disposition home or self-care (01) ==
LOC: OR 18:07 → AC 18:26
PROVIDERS: Urology; PCP Family Medicine; Referring Provider Surgery; Visit Provider Surgery
PROC: 0YQ64ZZ Repair Left Inguinal Region, Percutaneous Endoscopic Approach (ICD-10-PCS; CPT 49650; principal; 2023-09-17 14:15)
PROC: (CPT 52310; 2023-09-17 14:15)
DX: K40.20 Bilateral inguinal hernia, without obstruction or gangrene, not specified as recurrent (principal); N21.0 Calculus in bladder
CPT/HCPCS: 49650; 52310; J0136; J0690; J1100; J1170; J2274; J2405; J2704; J3010

== ENCOUNTER → 2023-09-30 14:42 | Outpatient (CLI) | payer BC, SELFPAY ==
[2023-09-17 19:11] VITALS: BMI 24.4
[2023-09-30 15:59] LABS: Calcium 9.8 mg/dL (8.4-10.2); Phosphorous 3.1 mg/dL (2.3-3.7); Uric Acid 7.8 mg/dL (3.5-8.5)
[2023-10-03 15:06] LABS: Calcium 9.8 mg/dL (8.6-10.2); Parathyroid Hormone, Intact 42 pg/mL (15-65)
== END ==
PROVIDERS: PCP Family Medicine; Referring Provider Urology; Visit Provider Urology
DX: N21.0 Calculus in bladder (principal); N20.0 Calculus of kidney
CPT/HCPCS: 36415; 82310; 83970; 84100; 84550

== ENCOUNTER → 2023-10-07 13:58 | Outpatient (CLI) | payer BC, SELFPAY ==
[2023-09-17 19:11] VITALS: BMI 24.4
[2023-10-07 15:09] LABS: Appearance Urine UA CLEAR; Bilirubin Urine UA NEGATIVE (NEGATIVE); Color Urine UA YELLOW; Glucose Urine UA NEGATIVE (Negative); Ketones Urine UA NEGATIVE (NEGATIVE); Leukocyte Esterase Urine UA NEGATIVE (NEGATIVE); Nitrite Urine UA NEGATIVE (Negative); Occult Blood Urine UA NEGATIVE (Negative); Protein Urine UA NEGATIVE (Negative); Urobilinogen Urine UA 0.2 E.U./dL (0.2)
== END ==
PROVIDERS: PCP Family Medicine; Referring Provider Urology; Visit Provider Urology
DX: R31.29 Other microscopic hematuria (principal)
CPT/HCPCS: 81003

== ENCOUNTER → 2024-03-23 09:06 | Outpatient (CLI) | payer BC, SELFPAY ==
[2023-09-17 19:11] VITALS: BMI 24.4
[2024-03-23 10:26] LABS: Add Manual Diff / Slide Review NO; Basophils Absolute Auto 0 /uL (0-100); Basophils Percent Auto 0.4 % (0-2); Eosinophils Absolute Auto 100 /uL (0-450); Hematocrit 45.1 % (41-53); Hemoglobin 15.3 g/dL (13.5-17.5); Lymphocytes Absolute Auto 2100 /uL (1100-4500); Mean Corpuscular HGB Conc 33.9 % (30-36); Mean Corpuscular Hemoglobin 32.2 PG (26-34); Mean Corpuscular Volume 95.1 fL (80-100); Monocytes Absolute Auto 700 /uL (0-900); Monocytes Percent Auto 8.2 % (3-14); Neutrophils Absolute Auto 5900 /uL (1500-7000); Neutrophils Percent Auto 66.4 % (50-75); Platelet Count 180 X10^3/uL (150-400); Red Blood Cell Count 4.74 X10^6/uL (4.5-5.9); Red Cell Distribution Width 14.2 % (11.6-14.8); White Blood Cell Count 8.9 X10^3/uL (4.5-11.0)
[2024-03-23 10:49] LABS: Alanine Aminotransferase 15 IU/L (<50); Albumin 4.1 g/dL (3.5-5.0); Albumin Globulin Ratio 1.2 (1.0-2.8); Alkaline Phosphatase 66 U/L (38-126); Aspartate Aminotransferase 26 IU/L (17-59); BUN Creatinine Ratio 24.1 (6-22); Blood Urea Nitrogen 26 mg/dL (9-20); Calcium 9.6 mg/dL (8.4-10.2); Carbon Dioxide 30 mmol/L (22-32); Chloride 103 mmol/L (98-107); Cholesterol 216 mg/dL (140-199); Estimated Glomerular Filt Rate > 60 mL/min (>60); Globulin 3.3 g/dL (1.7-4.1); Glucose 114 mg/dL (80-110); HDL Cholesterol 69 mg/dL (40-60); HEMOLYSIS < 15 (0-50); LDL Cholesterol Calculated 132 mg/dL (<100); Potassium 5.1 mmol/L (3.4-5.1); Sodium 138 mmol/L (137-145); Total Protein 7.4 g/dL (6.3-8.2); Triglycerides 74 mg/dL (35-150)
[2024-03-23 11:19] LABS: TSH w/ Reflex to FT4 3.03 uIU/mL (0.47-4.68)
[2024-03-23 12:05] LABS: Hemoglobin A1C% w Est Avg Glu 5.8 % (4.0-6.0)
== END ==
LOC: LAB 09:07
PROVIDERS: PCP Family Medicine; Referring Provider Family Medicine; Visit Provider Family Medicine
DX: Z00.00 Encounter for general adult medical examination without abnormal findings (principal); R73.01 Impaired fasting glucose; E78.2 Mixed hyperlipidemia; Z87.442 Personal history of urinary calculi; N20.0 Calculus of kidney; Z13.6 Encounter for screening for cardiovascular disorders; Z13.29 Encounter for screening for other suspected endocrine disorder
CPT/HCPCS: 36415; 80053; 80061; 83036; 84443; 85025